=== PATIENT | female | born 1990 | race Caucasian/White ===

== ENCOUNTER 2017-10-27 20:28 | Emergency (ER) | payer BC ==
[~2017-10-27] VITALS: Ht 165.1 cm; Wt 63.5 kg
[~2017-10-27 20:28] MED LIST: ENOX80I SC; METO25ER PO; Verotin-Gr Cap1 EACH PO
[2017-10-27] MEDS ORDERED: WARF1 PO (20:33)
[2017-10-27] MEDS ORDERED: ASPI81CH PO (20:34)
[2017-10-27] MEDS ORDERED: LISI5 PO (20:34)
== END 2017-10-27 22:14 | disposition home or self-care (01) ==
LOC: ER 20:28
DX: S61.412A Laceration without foreign body of left hand, initial encounter (principal); W26.8XXA Contact with other sharp object(s), not elsewhere classified, initial encounter; Z91.048 Other nonmedicinal substance allergy status; Z88.8 Allergy status to other drugs, medicaments and biological substances; Z79.899 Other long term (current) drug therapy; Z79.01 Long term (current) use of anticoagulants; Z79.82 Long term (current) use of aspirin
CPT/HCPCS: 12001; 90471; 90714; 99283

== ENCOUNTER 2018-12-26 16:53 | Emergency (ER) | payer BC ==
[~2018-12-26] VITALS: Ht 165.1 cm; Wt 63.5 kg
[~2018-12-26 16:53] MED LIST changes: +ASPI81CH PO; +LISI5 PO; +WARF1 PO
[2018-12-26] MEDS ORDERED: METO25ER PO (17:35)
[2018-12-26] MEDS ORDERED: WARF10 PO (17:35)
[2018-12-26] MEDS ORDERED: LISI5 PO (17:36)
[2018-12-26] MEDS ORDERED: Amitriptyline H10 MG PO (17:37)
[2018-12-26] MEDS ORDERED: Vitamin K100 MCG PO (17:37)
[2018-12-26] MEDS ORDERED: SUMA25 PO (17:38)
== END 2018-12-26 20:00 | disposition home or self-care (01) ==
LOC: ER 16:53
DX: N99.841 Postprocedural hematoma of a genitourinary system organ or structure following other procedure (principal); M79.604 Pain in right leg; Z79.01 Long term (current) use of anticoagulants; I48.92 Unspecified atrial flutter; G43.909 Migraine, unspecified, not intractable, without status migrainosus; Z88.8 Allergy status to other drugs, medicaments and biological substances; Z79.899 Other long term (current) drug therapy; Z95.2 Presence of prosthetic heart valve
CPT/HCPCS: 93971; 99283-25

== ENCOUNTER 2023-02-08 14:39 | Emergency (ER) | payer OTHER ==
[~2023-02-08] VITALS: Ht 162.6 cm; Wt 73.9 kg
[~2023-02-08 14:39] MED LIST changes: -DEPO-PROVE150 MG/1 M IM; -TRI-MILI 28 TA1 EACH PO
[2023-02-08 20:55] LABS: BASOPHILS ABSOLUTE AUTO 0.06 K/mm3 (0.00-0.23); BASOPHILS PERCENT AUTO 1 % (0-2); EOSINOPHILS ABSOLUTE AUTO 0.18 K/mm3 (0.00-0.68); EOSINOPHILS PERCENT AUTO 2 % (0-6); Hematocrit 29.7 % (33.0-51.0); Hemoglobin 10.4 g/dL (11.5-16.0); IMMATURE GRAN ABSOLUTE AUTO 0.01 K/mm3 (0.00-0.10); IMMATURE GRAN PERCENT AUTO 0 % (0-1); LYMPHOCYTES ABSOLUTE AUTO 2.32 K/mm3 (0.84-5.20); LYMPHOCYTES PERCENT AUTO 31 % (21-46); MONOCYTES ABSOLUTE AUTO 0.46 K/mm3 (0.16-1.47); MONOCYTES PERCENT AUTO 6 % (4-13); Mean Corpuscular HGB 30.2 pg (26.0-34.0); Mean Corpuscular Volume 86 fL (80-100); Mean Platelet Volume 11.1 fL (9.1-12.4); NEUTROPHILS ABSOLUTE AUTO 4.48 K/mm3 (1.96-9.15); NEUTROPHILS PERCENT AUTO 60 % (41-73); Platelet Count 286 K/mm3 (150-400); RDW Coefficient Variation 11.7 % (11.7-14.2); RDW Standard Deviation 36.6 fL (35.1-46.3); Red Blood Cell Count 3.44 M/mm3 (3.80-5.20); White Blood Cell Count 7.51 K/mm3 (4.00-11.30)
[2023-02-08 21:18] LABS: Albumin, Blood 3.8 g/dL (3.4-5.0); Albumin/Globulin Ratio 1.5 (0.8-1.8); Bilirubin, Total 0.4 mg/dL (0.1-1.0); Bun/Creatinine Ratio 21.5 (12.0-20.0); Calcium, Blood 8.5 mg/dL (8.5-10.1); Creatinine, Blood 0.65 mg/dL (0.40-1.00); Globulin, Blood 2.6 g/dL (2.2-4.0); Total Protein, Blood 6.4 g/dL (6.4-8.2)
[2023-02-08 21:59] VITALS: BP 118/83
[2023-02-11] MEDS ORDERED: DEPO-PROVE150 MG/1 M IM (17:07)
[2023-02-11] MEDS ORDERED: TRI-MILI 28 TA1 EACH PO (17:14)
== END 2023-02-08 22:00 | disposition home or self-care (01) ==
LOC: ER 14:39
PROVIDERS: Physician Assistant
DX: N93.9 Abnormal uterine and vaginal bleeding, unspecified (principal); Z98.51 Tubal ligation status; Z79.01 Long term (current) use of anticoagulants; Z95.2 Presence of prosthetic heart valve; Z88.8 Allergy status to other drugs, medicaments and biological substances; Z91.048 Other nonmedicinal substance allergy status
CPT/HCPCS: 76830; 76856; 80053; 85025; 86850; 86870; 86900; 86901; 86905; 99284-25

== ENCOUNTER → 2023-02-08 | Outpatient (CLI) | payer OTHER ==
[~2023-02-08] MED LIST changes: +Amitriptyline H10 MG PO; +DEPO-PROVE150 MG/1 M IM; +METO100ER PO; +SUMA25 PO; +TRI-MILI 28 TA1 EACH PO; +Vitamin K100 MCG PO; +WARF10 PO
[2023-02-08 17:06] LABS: BASOPHILS ABSOLUTE AUTO 0.05 K/mm3 (0.00-0.23); BASOPHILS PERCENT AUTO 1 % (0-2); EOSINOPHILS ABSOLUTE AUTO 0.17 K/mm3 (0.00-0.68); EOSINOPHILS PERCENT AUTO 2 % (0-6); Hemoglobin 12.4 g/dL (11.5-16.0); IMMATURE GRAN ABSOLUTE AUTO 0.02 K/mm3 (0.00-0.10); IMMATURE GRAN PERCENT AUTO 0 % (0-1); LYMPHOCYTES ABSOLUTE AUTO 2.06 K/mm3 (0.84-5.20); LYMPHOCYTES PERCENT AUTO 30 % (21-46); MONOCYTES ABSOLUTE AUTO 0.37 K/mm3 (0.16-1.47); MONOCYTES PERCENT AUTO 5 % (4-13); Mean Corpuscular HGB 29.9 pg (26.0-34.0); Mean Corpuscular HGB Conc 34.4 g/dL (31.5-36.5); Mean Corpuscular Volume 87 fL (80-100); Mean Platelet Volume 11.3 fL (9.1-12.4); NEUTROPHILS ABSOLUTE AUTO 4.31 K/mm3 (1.96-9.15); NEUTROPHILS PERCENT AUTO 62 % (41-73); Platelet Count 309 K/mm3 (150-400); RDW Coefficient Variation 11.6 % (11.7-14.2); Red Blood Cell Count 4.15 M/mm3 (3.80-5.20); White Blood Cell Count 6.98 K/mm3 (4.00-11.30)
[2023-02-08 17:11] LABS: Albumin, Blood 4.1 g/dL (3.4-5.0); Albumin/Globulin Ratio 1.3 (0.8-1.8); Bilirubin, Total 0.5 mg/dL (0.1-1.0); Bun/Creatinine Ratio 24.7 (12.0-20.0); Creatinine, Blood 0.49 mg/dL (0.40-1.00); Globulin, Blood 3.2 g/dL (2.2-4.0); Potassium, Blood 4.1 mmol/L (3.5-5.5); Total Protein, Blood 7.3 g/dL (6.4-8.2)
== END ==
LOC: LAB 10:06 → LAB SHORT 10:06
PROVIDERS: Family Medicine
DX: D64.9 Anemia, unspecified (principal)
CPT/HCPCS: 80053; 85025

== ENCOUNTER 2023-02-11 14:17 | Observation (INO) | payer OTHER ==
[~2023-02-11] VITALS: Ht 165.1 cm; Wt 72.3 kg
[2023-02-11 15:01] LABS: BASOPHILS ABSOLUTE AUTO 0.06 K/mm3 (0.00-0.23); BASOPHILS PERCENT AUTO 1 % (0-2); EOSINOPHILS ABSOLUTE AUTO 0.15 K/mm3 (0.00-0.68); EOSINOPHILS PERCENT AUTO 2 % (0-6); Hematocrit 22.7 % (33.0-51.0); Hemoglobin 7.8 g/dL (11.5-16.0); IMMATURE GRAN ABSOLUTE AUTO 0.02 K/mm3 (0.00-0.10); IMMATURE GRAN PERCENT AUTO 0 % (0-1); LYMPHOCYTES PERCENT AUTO 27 % (21-46); MONOCYTES PERCENT AUTO 5 % (4-13); Mean Corpuscular HGB 30.7 pg (26.0-34.0); Mean Corpuscular HGB Conc 34.4 g/dL (31.5-36.5); Mean Corpuscular Volume 89 fL (80-100); Mean Platelet Volume 10.8 fL (9.1-12.4); NEUTROPHILS ABSOLUTE AUTO 4.77 K/mm3 (1.96-9.15); NEUTROPHILS PERCENT AUTO 65 % (41-73); Platelet Count 313 K/mm3 (150-400); RDW Coefficient Variation 12.6 % (11.7-14.2); RDW Standard Deviation 40.1 fL (35.1-46.3); Red Blood Cell Count 2.54 M/mm3 (3.80-5.20)
[2023-02-11] MEDS ORDERED: DEPO-PROVE150 MG/1 M IM ×2 (17:07)
[2023-02-11] MEDS ORDERED: TRI-MILI 28 TA1 EACH PO ×2 (17:14)
[2023-02-11 17:40] LABS: Prothrombin Time Results 48.6 Sec (9.7-11.5)
[2023-02-11 17:57] LABS: International Normalized Ratio 5.07
[2023-02-11 19:58] VITALS: BP 124/67
[2023-02-11 20:47] VITALS: BP 126/66
[2023-02-11 21:24] VITALS: BP 117/74
--- NOTE | 2023-02-11 22:45 | NUR ---
PT ARRIVED FROM ED ROUGHLY 1999, PRBC'S STARTED IN ED 1909, PT DEVELOPED TRANS REACTION 2024, PROVIDER NOTIFIED, TRANSFUSION STOPPED, 25MG BENADRYL ORDERED AND GIVEN PER HOSPITALIST, CONTINUE POC
[2023-02-12 04:51] LABS: BASOPHILS ABSOLUTE AUTO 0.05 K/mm3 (0.00-0.23); BASOPHILS PERCENT AUTO 1 % (0-2); EOSINOPHILS ABSOLUTE AUTO 0.21 K/mm3 (0.00-0.68); EOSINOPHILS PERCENT AUTO 3 % (0-6); Hematocrit 23.5 % (33.0-51.0); Hemoglobin 7.9 g/dL (11.5-16.0); IMMATURE GRAN ABSOLUTE AUTO 0.02 K/mm3 (0.00-0.10); IMMATURE GRAN PERCENT AUTO 0 % (0-1); LYMPHOCYTES ABSOLUTE AUTO 2.19 K/mm3 (0.84-5.20); LYMPHOCYTES PERCENT AUTO 35 % (21-46); MONOCYTES PERCENT AUTO 6 % (4-13); Mean Corpuscular HGB 29.7 pg (26.0-34.0); Mean Corpuscular HGB Conc 33.6 g/dL (31.5-36.5); Mean Corpuscular Volume 88 fL (80-100); NEUTROPHILS ABSOLUTE AUTO 3.36 K/mm3 (1.96-9.15); NEUTROPHILS PERCENT AUTO 54 % (41-73); Platelet Count 284 K/mm3 (150-400); RDW Coefficient Variation 13.5 % (11.7-14.2); RDW Standard Deviation 41.7 fL (35.1-46.3); Red Blood Cell Count 2.66 M/mm3 (3.80-5.20); White Blood Cell Count 6.23 K/mm3 (4.00-11.30)
[2023-02-12 07:43] VITALS: BP 105/68
[2023-02-12 10:35] LABS: International Normalized Ratio 2.85; Prothrombin Time Results 28.2 Sec (9.7-11.5)
[2023-02-12 10:42] LABS: Percent Saturation 9.3 % (15.0-50.0)
--- NOTE | 2023-02-12 13:10 | NUR ---
rechecked labs, discussed plan of care. Plan is to DC and patient will be going to [place] to f/u with specialist. Vitals stable. Patient left medical floor at 1245.
== END 2023-02-12 13:00 | disposition home or self-care (01) ==
LOC: ER 14:17 → MEDS 14:18 → ENPENDDIS 02-12 12:02 → MEDS 02-12 13:00
PROVIDERS: Emergency Medicine; Physician Assistant; ADMIT Obstetrics & Gynecology
DX: D50.0 Iron deficiency anemia secondary to blood loss (chronic) (principal); N93.9 Abnormal uterine and vaginal bleeding, unspecified; Z79.01 Long term (current) use of anticoagulants; Z95.9 Presence of cardiac and vascular implant and graft, unspecified
CPT/HCPCS: 36415; 36430; 82728; 83540; 83550; 84703; 85025; 85610; 86850; 86870; 86900; 86901; 86902; 86922; 96374; 99284-25; G0378; J1200; J7030; P9016

== ENCOUNTER 2023-04-26 17:19 | Emergency (ER) | payer OTHER ==
[~2023-04-26] VITALS: Ht 162.6 cm; Wt 74.8 kg
[~2023-04-26 17:19] MED LIST changes: +DEPO-PROVE150 MG/1 M IM; +TRI-MILI 28 TA1 EACH PO
[2023-04-26 19:46] LABS: BASOPHILS ABSOLUTE AUTO 0.06 K/mm3 (0.00-0.23); BASOPHILS PERCENT AUTO 1 % (0-2); EOSINOPHILS ABSOLUTE AUTO 0.08 K/mm3 (0.00-0.68); EOSINOPHILS PERCENT AUTO 1 % (0-6); Hematocrit 40.4 % (33.0-51.0); Hemoglobin 12.9 g/dL (11.5-16.0); IMMATURE GRAN ABSOLUTE AUTO 0.02 K/mm3 (0.00-0.10); IMMATURE GRAN PERCENT AUTO 0 % (0-1); LYMPHOCYTES ABSOLUTE AUTO 2.37 K/mm3 (0.84-5.20); LYMPHOCYTES PERCENT AUTO 33 % (21-46); MONOCYTES ABSOLUTE AUTO 0.58 K/mm3 (0.16-1.47); MONOCYTES PERCENT AUTO 8 % (4-13); Mean Corpuscular HGB 25.2 pg (26.0-34.0); Mean Corpuscular HGB Conc 31.9 g/dL (31.5-36.5); Mean Corpuscular Volume 79 fL (80-100); Mean Platelet Volume 9.9 fL (9.1-12.4); NEUTROPHILS ABSOLUTE AUTO 3.99 K/mm3 (1.96-9.15); NEUTROPHILS PERCENT AUTO 56 % (41-73); Platelet Count 383 K/mm3 (150-400); RDW Coefficient Variation 14.7 % (11.7-14.2); RDW Standard Deviation 42.4 fL (35.1-46.3); Red Blood Cell Count 5.11 M/mm3 (3.80-5.20)
[2023-04-26 20:05] LABS: Influenza A, PCR NEGATIVE (NEGATIVE); Influenza B, PCR NEGATIVE (NEGATIVE); Resp Syncytial Virus, PCR NEGATIVE (NEGATIVE); SARS-Cov-2 (COVID-19) PCR, MMC NEGATIVE (NEGATIVE)
[2023-04-26 20:06] LABS: Albumin, Blood 3.7 g/dL (3.4-5.0); Albumin/Globulin Ratio 0.9 (0.8-1.8); Bilirubin, Total 0.3 mg/dL (0.1-1.0); Bun/Creatinine Ratio 13.9 (12.0-20.0); Calcium, Blood 8.4 mg/dL (8.5-10.1); Creatinine, Blood 0.5 mg/dL (0.40-1.00); Globulin, Blood 3.9 g/dL (2.2-4.0); Potassium, Blood 3.8 mmol/L (3.5-5.5); Total Protein, Blood 7.6 g/dL (6.4-8.2)
[2023-04-26 20:45] VITALS: BP 125/81
== END 2023-04-26 20:46 | disposition home or self-care (01) ==
LOC: ER 17:19
PROVIDERS: Student in an Organized Health Care Education/Training Program
DX: R79.1 Abnormal coagulation profile (principal); T45.515A Adverse effect of anticoagulants, initial encounter; N92.0 Excessive and frequent menstruation with regular cycle; R09.81 Nasal congestion; Z20.822 Contact with and (suspected) exposure to COVID-19; Z88.1 Allergy status to other antibiotic agents; Z88.5 Allergy status to narcotic agent; Z88.8 Allergy status to other drugs, medicaments and biological substances; Z91.048 Other nonmedicinal substance allergy status; Z79.01 Long term (current) use of anticoagulants; Z79.899 Other long term (current) drug therapy
CPT/HCPCS: 0241U; 80053; 85025; 99283; A9270

== ENCOUNTER 2024-05-09 19:29 | Emergency (ER) | payer OTHER ==
[~2024-05-09] VITALS: Ht 167.6 cm; Wt 72.6 kg
[2024-05-09 19:54] VITALS: BP 153/81
== END 2024-05-09 21:48 | disposition home or self-care (01) ==
LOC: ER 19:29
DX: S61.212A Laceration without foreign body of right middle finger without damage to nail, initial encounter (principal); G43.909 Migraine, unspecified, not intractable, without status migrainosus; Z91.048 Other nonmedicinal substance allergy status; Z88.1 Allergy status to other antibiotic agents; Z88.8 Allergy status to other drugs, medicaments and biological substances; Z88.5 Allergy status to narcotic agent; Z79.01 Long term (current) use of anticoagulants; Z79.899 Other long term (current) drug therapy; W27.4XXA Contact with kitchen utensil, initial encounter; Y93.G1 Activity, food preparation and clean up
CPT/HCPCS: 12001; 73140; 99283-25

== ENCOUNTER 2024-08-22 04:35 | Day surgery (SDC) | payer OTHER ==
[~2024-08-22 04:35] MED LIST changes: +Sod Ferric Gluc Complx/Sucrose 125 MG in NS 100 ML IV SCH
[2024-08-22 10:26] VITALS: BP 112/75
[2024-08-22] MEDS ORDERED: PROM25 PO (10:31)
[2024-08-22] MEDS ORDERED: ACET325 PO (10:31)
[2024-08-22 11:28] VITALS: BP 122/78
--- NOTE | 2024-08-22 15:47 | NUR ---
AT THE END OF PT'S IRON INFUSION TODAY AT 1128, RN WAS CALLED TO THE ROOM BY PT WHO WAS HAVING A PRETTY SIGNIFICANT NOSE BLEED. PT WAS CONCERNED THAT THE NOSE BLEED WAS SOME SORT OF REACTION TO THE IRON INFUSION. REVIEWED LEXICOMP AND SPOKE WITH PHARMACIST JORDYN AND IT IS POSSIBLE THAT A RAPID CHANGE IRON LEVELS COULD CAUSE HEMMORHAGE REACTIONS IN SOME PT'S. DR LOPEZ'S OFFICE CALLED REGARDING THE NOSE BLEED AT 1141 TODAY. A MESSAGE WAS SENT BACK TO DR LOPEZ AND HIS RN. PT HAS A HISTORY OF SENSITIVITIES AND REACTIONS TO MEDS AND PROCEDURES. PT IS CURRENTLY ON WARFARIN 14MG/DAY. LAST INR WAS CHECKED ON WEDNESDAY AND IT WAS 4.2 ACCORDING TO THE PT. PT STATES SHE'S HAD BLOODY NOSES BEFORE BUT NOT IN A VERY LONG TIME AND THE TIMING OF THIS NOSE BLEED WAS CONCERNING IT COINCIDED WITH THE IRON INFUSION. PT HAD NO OTHER SIGNS OR SYMPTOMS OF INSTABILITY. NO LIGHTHEADEDNESS, DIZZINESS, VISUAL CHANGES, NAUSEA, HEADACHE, RASH, SOB AND VITAL SIGNS WNL. PT STATED THE NOSE BLEED STOPPED AT 1145 AND SHE FELT STABLE ENOUGH TO GO HOME. SIGNIFICANT OTHER DRIVING PT HOME. PT VERBALIZED UNDERSTANDING TO SEEK IMMEDIATE MEDICAL ATTENTION IF SHE BEGINS BLEEDING AGAIN OR BECOMES SYMPTOMATIC. CALLED DR LOPEZ'S OFFICE AT 1545 FOR AN UPDATE AND DR LOPEZ STILL HAS NOT REVIEWED THE CHART. HARLAN STATED SHE WOULD SEND ANOTHER URGENT MESSAGE BACK TO HIM TO REVIEW THE PT'S CHART. PT CALLED AT 1600 AND UPDATED. WE WILL UPDATE PT AGAIN ONCE WE HEAR BACK FROM DR LOPEZ.
== END 2024-08-22 11:45 | disposition home or self-care (01) ==
LOC: ATC 04:35
DX: D50.9 Iron deficiency anemia, unspecified (principal); I50.9 Heart failure, unspecified; I48.92 Unspecified atrial flutter
CPT/HCPCS: 96365; J2916

== ENCOUNTER 2024-08-29 05:12 | Day surgery (SDC) | payer OTHER ==
[~2024-08-29 05:12] MED LIST changes: +ACET325 PO; +PROM25 PO
[2024-08-29 10:10] VITALS: BP 121/79
== END 2024-08-29 11:25 | disposition home or self-care (01) ==
LOC: ATC 05:12
DX: D50.9 Iron deficiency anemia, unspecified (principal); I50.9 Heart failure, unspecified
CPT/HCPCS: 96365; J2916

== ENCOUNTER 2024-09-04 08:21 | Day surgery (SDC) | payer OTHER ==
[2024-09-04 10:05] VITALS: BP 122/75
== END 2024-09-04 11:12 | disposition home or self-care (01) ==
LOC: ATC 08:21
DX: D50.9 Iron deficiency anemia, unspecified (principal); I50.9 Heart failure, unspecified
CPT/HCPCS: 96365; J2916

== ENCOUNTER 2024-09-11 05:29 | Day surgery (SDC) | payer OTHER ==
[~2024-09-11 05:29] MED LIST changes: -Sod Ferric Gluc Complx/Sucrose 125 MG in NS 100 ML IV SCH
[2024-09-11] MEDS ORDERED: Sod Ferric Gluc Complx/Sucrose 125 MG in NS 100 ML IV SCH (06:00)
[2024-09-11 10:04] VITALS: BP 115/70
== END 2024-09-11 11:19 | disposition home or self-care (01) ==
LOC: ATC 05:29
DX: D50.9 Iron deficiency anemia, unspecified (principal); I50.9 Heart failure, unspecified; I48.92 Unspecified atrial flutter
CPT/HCPCS: 96365; J2916

== ENCOUNTER 2024-09-18 05:47 | Day surgery (SDC) | payer OTHER ==
[~2024-09-18 05:47] MED LIST changes: +Sod Ferric Gluc Complx/Sucrose 125 MG in NS 100 ML IV SCH
[2024-09-18 10:01] VITALS: BP 124/85
== END 2024-09-18 11:14 | disposition home or self-care (01) ==
LOC: ATC 05:47
DX: D50.9 Iron deficiency anemia, unspecified (principal); I50.9 Heart failure, unspecified
CPT/HCPCS: 96365; J2916

== ENCOUNTER 2024-09-27 06:41 | Day surgery (SDC) | payer OTHER ==
[2024-09-27] MEDS ORDERED: AMOX-CLAV 875-1 EAC5 PO (10:12)
[2024-09-27 10:15] VITALS: BP 136/98
== END 2024-09-27 11:13 | disposition home or self-care (01) ==
LOC: ATC 06:41
DX: D50.9 Iron deficiency anemia, unspecified (principal); I50.9 Heart failure, unspecified; Z79.01 Long term (current) use of anticoagulants
CPT/HCPCS: 96365; J2916

== ENCOUNTER 2024-10-11 01:11 | Day surgery (SDC) | payer OTHER ==
[~2024-10-11 01:11] MED LIST changes: +AMOX-CLAV 875-1 EAC5 PO
[2024-10-11 10:36] VITALS: BP 135/69
== END 2024-10-11 23:33 | disposition home or self-care (01) ==
LOC: ATC 01:11
DX: D50.9 Iron deficiency anemia, unspecified (principal); I50.9 Heart failure, unspecified; I49.8 Other specified cardiac arrhythmias; I47.19 Other supraventricular tachycardia; I35.1 Nonrheumatic aortic (valve) insufficiency; I48.92 Unspecified atrial flutter; Z87.74 Personal history of (corrected) congenital malformations of heart and circulatory system; Z79.01 Long term (current) use of anticoagulants; Z79.899 Other long term (current) drug therapy; Z95.2 Presence of prosthetic heart valve
CPT/HCPCS: 96365; J2916